=== PATIENT | male | born 1965 | race Caucasian/White ===

== ENCOUNTER 2025-06-10 08:05 | Day surgery (SDC) | payer MEDICAID, SELFPAY ==
[2025-06-05 16:10] VITALS: BMI 25.0
[2025-06-10] VITALS (10 sets, daily range): BP systolic 136–172; BP diastolic 91–112; PULSE 60–71; RESP 9–18; TEMP 36.6–36.7; O2SAT 95–97; BMI 25.3
[2025-06-10] MEDS: RINGERS LACTATED 1000 ML 1,000 ML 125 ML IV (09:53)
[2025-06-10] MEDS: BENZOCAINE 20% (Hurricaine) SPRAY 1 DOSE TOP (09:53)
[2025-06-10] MEDS: MIDAZOLAM INJ 1 MG/ML VIAL 2 ML (ASD USE ONLY) 2 MG IVP (10:02)
[2025-06-10] MEDS: fentaNYL CIT INJ 50 mCg/ML AMP 2ML (ASD USE ONLY) IVP (10:02)
== END 2025-06-10 11:00 | disposition home or self-care (01) ==
PROVIDERS: PCP Nurse Practitioner; Referring Provider Internal Medicine Gastroenterology; Visit Provider Internal Medicine Gastroenterology
PROC: (CPT 43239; principal; 2025-06-10 09:00)
DX: K29.70 Gastritis, unspecified, without bleeding (principal); K31.89 Other diseases of stomach and duodenum; K44.9 Diaphragmatic hernia without obstruction or gangrene; K22.2 Esophageal obstruction
CPT/HCPCS: 43239; 43249; A4217; A4649; C1726; J1200; J2250; J3010; J7120; A9270

== ENCOUNTER 2025-06-12 08:00 | Day surgery (SDC) | payer MEDICAID, SELFPAY ==
[2025-06-11 12:48] VITALS: BMI 25.3
[2025-06-12] VITALS (9 sets, daily range): BP systolic 120–154; BP diastolic 79–98; PULSE 61–80; RESP 14–21; TEMP 36.4–36.7; O2SAT 96–100; BMI 24.5
[2025-06-12] MEDS: RINGERS LACTATED 1000 ML 1,000 ML 125 ML IV (09:04)
[2025-06-12] MEDS: MIDAZOLAM INJ 1 MG/ML VIAL 2 ML (ASD USE ONLY) 2 MG IVP (09:11)
[2025-06-12] MEDS: fentaNYL CIT INJ 50 mCg/ML AMP 2ML (ASD USE ONLY) IVP (09:11)
== END 2025-06-12 10:05 | disposition home or self-care (01) ==
PROVIDERS: Referring Provider Internal Medicine Gastroenterology; Visit Provider Internal Medicine Gastroenterology
PROC: 0DBE8ZX Excision of Large Intestine, Via Natural or Artificial Opening Endoscopic, Diagnostic (ICD-10-PCS; CPT 45380; principal; 2025-06-12 09:00)
DX: K52.9 Noninfective gastroenteritis and colitis, unspecified (principal); I10 Essential (primary) hypertension; K64.1 Second degree hemorrhoids; K57.30 Diverticulosis of large intestine without perforation or abscess without bleeding
CPT/HCPCS: 45380; A4217; A4649; J1200; J2250; J3010; J7120

== ENCOUNTER 2025-08-21 08:00 | Day surgery (SDC) | payer MEDICAID, SELFPAY ==
[2025-08-20 11:20] VITALS: BMI 25.0
[2025-08-21] VITALS (13 sets, daily range): BP systolic 123–186; BP diastolic 80–131; PULSE 70–83; RESP 14–18; TEMP 36.4–36.7; O2SAT 95–99; BMI 24.5
[2025-08-21] MEDS: RINGERS LACTATED 500 ML 500 ML 20 ML IV (08:38)
[2025-08-21] MEDS: fentaNYL CIT INJ 50 mCg/ML AMP 2ML (ASD USE ONLY) IVP ×2 (08:38→09:04)
[2025-08-21] MEDS: LABETALOL INJ 5 MG/ML VIAL 20 ML 2.5 MG IVP (08:48)
[2025-08-21] MEDS: MIDAZOLAM INJ 1 MG/ML VIAL 2 ML (ASD USE ONLY) 2 MG IVP (09:00)
[2025-08-21] MEDS: SIMETHICONE 40 MG/0.6 ML ORAL SYRINGE PO (09:01)
== END 2025-08-21 10:00 | disposition home or self-care (01) ==
PROVIDERS: PCP Nurse Practitioner; Referring Provider Internal Medicine Gastroenterology; Visit Provider Internal Medicine Gastroenterology
PROC: 0DBE8ZX Excision of Large Intestine, Via Natural or Artificial Opening Endoscopic, Diagnostic (ICD-10-PCS; CPT 45380; principal; 2025-08-21 10:00)
DX: D12.3 Benign neoplasm of transverse colon (principal); I10 Essential (primary) hypertension; K64.1 Second degree hemorrhoids; K57.30 Diverticulosis of large intestine without perforation or abscess without bleeding
CPT/HCPCS: 45385; 45381; 45380; A4649; J1200; J2250; J3010; J3490; J7120; A9270; J1920